=== PATIENT | male | born 1970 | race Caucasian/White ===

== ENCOUNTER 2016-10-19 11:03 | Emergency (ER) | payer OTHER ==
--- NOTE | ~2016-10-19 | EKG ---
PATIENT: CHARISSA KINGSLEY UNIT #: [id number] Ventricular Rate: 66 BPM Atrial Rate: 66 BPM P-R Interval: 162 ms QRS Duration: 86 ms Q-T Interval: 400 ms QTC Calculation(Bezet): 419 ms P Thompson: 77 degrees Calculated R Thompson: 90 degrees Calculated T Thompson: 65 degrees Diagnosis Line: Normal sinus rhythm Diagnosis Line: Rightward axis Diagnosis Line: Borderline ECG Diagnosis Line: When compared with ECG of 23-MAR-2010 15:10, Diagnosis Line: ST now depressed in Anterior leads Diagnosis Line: Confirmed by ALTAGRACIA MICHAEL MD ([id number]) on Diagnosis Line: 10/26/2016 7:16:17 AM INTERPRETING MD: LOYD
--- NOTE | ~2016-10-19 | CR72 ---
[facility] A Service of [facility] RADIOLOGY TEXT RESULTS PATIENT: CHARISSA KINGSLEY LOCATION: SED : 74 UNIT #: [id number] AGE: [address]: Elodia Caputo MD SEX: M ORDER DR: [id number] [place] [address] [id number] E MR#: [id number] Acc #: [id number] NAME: CHARISSA KINGSLEY : 1970 SEX: M STUDY DATE/TIME: 10/19/2016 10:57 UNIT: SED ROOM: STUDY DESCRIPTION: CR Chest Single View Portable Attending Physician: Elodia Caputo M.D. Ordering Physician: Elodia Caputo M.D. Primary Care Physician: [facility], [facility]. MEDICAL IMAGING REPORT This report is preliminary unless electronic signature is present. EXAM Portable chest one-view, 10/19/2016 COMPARISON 09/20/2006 CLINICAL HISTORY Chest pain since yesterday, primarily left-sided. FINDINGS A single AP portable view of the chest shows both lungs to be clear. The heart is normal in size. The mediastinal contour is normal. No significant bone abnormalities are seen. IMPRESSION Normal portable chest. Dictated by... Kory Harris M.D. THIS IS AN ELECTRONICALLY VERIFIED REPORT Kory Harris M.D. at 10/19/2016 2:58 PM CONNOR/kelsi TD: 10/19/2016 11:52 JOB #: [id number] MEDICAL IMAGING REPORT Page 1 of 1
--- NOTE | ~2016-10-19 | EKG ---
PATIENT: CHARISSA KINGSLEY UNIT #: [id number] Ventricular Rate: 74 BPM Atrial Rate: 74 BPM P-R Interval: 164 ms QRS Duration: 96 ms Q-T Interval: 404 ms QTC Calculation(Bezet): 448 ms P Ralston: 79 degrees Calculated R Ralston: 87 degrees Calculated T Ralston: 64 degrees Diagnosis Line: Normal sinus rhythm Diagnosis Line: Normal ECG Diagnosis Line: When compared with ECG of 19-OCT-2016 10:22, Diagnosis Line: (unconfirmed) Diagnosis Line: No significant change was found Diagnosis Line: Confirmed by ALTAGRACIA MICHAEL MD ([id number]) on Diagnosis Line: 10/26/2016 7:16:21 AM INTERPRETING MD: LYOD
[2016-10-19 10:47] LABS: BASOPHIL# 0.1 X10e3 (0-0.3); BASOPHIL% 0.6 % (0-2.5); EOSINOPHIL# 0.1 X10e3 (0-0.7); EOSINOPHIL% 0.8 % (0.0-7.0); HEMATOCRIT 43.9 % (38.0-50.0); LYMPHOCYTE# 1.5 X10e3 (1.0-3.5); LYMPHOCYTE% 15.3 % (17.0-45.0); MEAN CELL VOLUME 94.1 FL (83-96); MEAN CORPUSCULAR HEMOGLOBIN 32.2 PG (28-34); MEAN CORPUSCULAR HGB CONC 34.3 g/dL (30-36); MEAN PLATELET VOLUME 8.7 FL (6.5-11.5); MONOCYTE# 0.5 X10e3 (0-1.0); MONOCYTE% 5.5 % (3.0-12.0); NEUTROPHIL# 7.7 X10e3 (1.5-7.1); NEUTROPHIL% 77.8 % (40-75); PLATELET COUNT 203 X10e3 (140-420); RED BLOOD COUNT 4.66 X10e (3.90-5.60); RED CELL DISTRIBUTION WIDTH 12.6 % (11.0-15.5); WHITE BLOOD COUNT 9.9 X10e3 (4.0-10.5)
[2016-10-19 10:59] LABS: POC - CKMB 1.7 ng/mL (0.0-7.9); POC - TROPONIN <0.05 ng/mL (<=0.05)
[2016-10-19 11:02] LABS: DIFF IND NO
[~2016-10-19 11:03] MED LIST: AMOXICILLIN500 M1 PO; BLOOD PRESSURE PILL; FLEXERIL10 M1 PO; GLUCOTROL PO; HYDROCODONE-APA1 T42 PO; LISINOPRIL; METFORMIN HCL500 M1 PO; ULTRAM PO; VOLTAREN75 MG PO; WATER PILL; [UNRECOGNIZED DRUG - OTHER]
[2016-10-19 11:05] LABS: PROTHROMBIN TIME (PATIENT) 11.4 SECONDS (9.5-12.4)
[2016-10-19 11:10] LABS: ALBUMIN SERUM 4.1 g/dL (3.5-5.0); BILIRUBIN, DIRECT 0.1 mg/dL (0.0-0.2); BILIRUBIN,INDIRECT 0.5 mg/dL (0.0-0.9); BILIRUBIN,TOTAL 0.6 mg/dL (0.2-2.0); CALCIUM SERUM 8.8 mg/dL (8.4-10.2); CREATININE SERUM 0.6 mg/dL (0.6-1.4); GLOM FILT RATE Estimated 122.3 mL/min (>60); POTASSIUM 3.6 mmol/L (3.5-5.1); PROTEIN TOTAL SERUM 6.7 g/dL (6.0-8.3)
[2016-10-19 11:12] LABS: PARTIAL THROMBOPLASTIN TIME 28.3 SECONDS (25.6-38.1)
[2016-10-19 12:39] LABS: POC - CKMB 1.6 ng/mL (0.0-7.9); POC - TROPONIN <0.05 ng/mL (<=0.05)
== END 2016-10-19 14:33 | disposition home or self-care (01) ==
LOC: SED 11:03
PROVIDERS: Student in an Organized Health Care Education/Training Program
DX: R07.89 Other chest pain (principal); E11.65 Type 2 diabetes mellitus with hyperglycemia; R11.2 Nausea with vomiting, unspecified; R06.02 Shortness of breath; R53.1 Weakness; R42 Dizziness and giddiness; R20.2 Paresthesia of skin; I10 Essential (primary) hypertension; E78.5 Hyperlipidemia, unspecified; F17.200 Nicotine dependence, unspecified, uncomplicated
CPT/HCPCS: 36415; 71010; 80048; 80076; 82553; 83880; 84484; 85025; 85379; 85610; 85730; 93005; 99284; J2270

== ENCOUNTER 2016-12-05 22:08 | Emergency (ER) | payer OTHER ==
[2016-12-05] MEDS ORDERED: LEVEMIR100 UNITS/ (22:25)
[2016-12-05 22:42] LABS: HEMATOCRIT 44.6 % (38.0-50.0); HEMOGLOBIN 15.3 gm/dL (13.0-16.0); MEAN CELL VOLUME 97.1 FL (83-96); MEAN CORPUSCULAR HEMOGLOBIN 33.3 PG (28-34); MEAN CORPUSCULAR HGB CONC 34.3 g/dL (30-36); MEAN PLATELET VOLUME 9.3 FL (6.5-11.5); RED BLOOD COUNT 4.6 X10e (3.90-5.60); RED CELL DISTRIBUTION WIDTH 12.5 % (11.0-15.5); WHITE BLOOD COUNT 8.3 X10e3 (4.0-10.5)
[2016-12-05 22:53] LABS: URINE SOURCE CLEAN CATCH
[2016-12-05 22:57] LABS: URINE APPEARANCE CLEAR; URINE BILIRUBIN NEG (NEG); URINE BLOOD NEG (NEG); URINE COLOR YELLOW; URINE GLUCOSE 300 MG/DL (NORM); URINE KETONE NEG (NEG); URINE LEUKOCYTE ESTERASE NEG (NEG); URINE NITRATE NEG (NEG); URINE PROTEIN NEG (NEG); URINE SPECIFIC GRAVITY <=1.005 (1.003-1.035); URINE UROBILINOGEN 0.2 MG/DL (NORM)
[2016-12-05 22:58] LABS: CALCIUM SERUM 9.4 mg/dL (8.4-10.2); GLOM FILT RATE Estimated 91.1 mL/min (>60); POTASSIUM 4.3 mmol/L (3.5-5.1)
[2016-12-05 22:58] LABS: MICRO INDICATED? NO
== END 2016-12-06 01:03 | disposition home or self-care (01) ==
LOC: SED 22:08
PROVIDERS: Emergency Medicine
DX: E11.65 Type 2 diabetes mellitus with hyperglycemia (principal)
CPT/HCPCS: 36415; 80048; 81003; 82947; 85027; 96361; 96374; 99284